=== PATIENT | female | born 1975 | race Caucasian/White ===

== ENCOUNTER 2018-03-15 19:16 | Emergency (ER) | payer SELFPAY ==
--- NOTE | 2018-03-15 19:46 | EDM.PDOC ---
ED HPI GENERAL MEDICAL PROBLEM - General Chief Complaint: Skin Complaint Stated Complaint: SPLINTERS IN BOTH KNEES Time Seen by Provider: 03/15/18 19:40 Source of Information: Reports: Patient - History of Present Illness Onset Date: 03/09/18 Duration: Day(s): Bilateral Knee Pain Score (Numeric/FACES): 10 - Related Data Allergies Allergy/AdvReac Type Severity Reaction Status Date / Time Penicillins Allergy Airway Verified 03/15/18 19:28 Tightness Home Meds: Home Meds . [No Known Home Meds] 03/15/18 [History] Past Medical History - Past Surgical History HEENT Surgical History: Reports: Oral Surgery Female Surgical History: Reports: Other (See Below) Other Female Surgeries/Procedures: tubes tied ED ROS GENERAL - Review of Systems Review Of Systems: See Below ED EXAM, SKIN/RASH Exam: See Below Course - Vital Signs Last Recorded V/S: Last Vital Signs Temp 36.6 C 03/15/18 19:22 Pulse 92 03/15/18 19:22 Resp 18 03/15/18 19:22 BP 117/83 03/15/18 19:22 Pulse Ox 100 03/15/18 19:22 Departure - Departure Time of Disposition: 19:49 Disposition: Home, Self-Care 01 Condition: Good Clinical Impression: Skin pustule - Discharge Information *PRESCRIPTION DRUG MONITORING PROGRAM REVIEWED*: Not Applicable *COPY OF PRESCRIPTION DRUG MONITORING REPORT IN PATIENT CASSIE: Not Applicable Instructions: Cellulitis, Adult, [id number] Referrals: PCP,None [Primary Care Provider] - Additional Instructions: Wash areas involved with bacteriocidal soap (Ie Dial) three times daily with brush, as discussed. Apply ointment after each washing. Take antibiotic (Bactrim) as prescribed. Followup with provider if not improved or resolved within 1 week. Return to ER or clinic if it worsens.
--- NOTE | 2018-03-16 03:40 | ER ---
REASON FOR EMERGENCY ROOM VISIT: Skin infection. HISTORY OF PRESENT ILLNESS: This is a 42-year-old woman comes in with a complaint of possible splinters, bug bites, or skin infection involving primarily her lower thigh and knee areas. 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 Beginning approximately 6 days ago, she noticed a couple of raised bumps on her right hand over the knuckles that festered into vesicles and then became pustular, drained and resolved. She similarly developed raised mildly painful skin lumps that became reddish and developed small vesicles which later turned into pustules that drained spontaneously. She developed approximately 4 of these over each knee over the patellar area bilaterally as well as a couple on her upper inner thighs just above the knees bilaterally. Her concern was that this might represent either some small sorts of wood splinters or perhaps some kind of insect bites. They sort of evolved very slowly over the past week and are persistent and have not shown any signs of resolving except for the ones on her hands have resolved spontaneously. There is no itching with these. She has not had any fever or chills. The redness has very slowly increased over the past 2 or 3 days. She has been treating these by bathing in Epsom salts and placing A and D ointment over them, but she has not taken any antibiotics. She is allergic to penicillin. She has no prior history of anything like this in the past. She was concerned that this might represent tiny splinters from crawling on her knees over this deck that she was working on, but she has not actually found any splinters. This of course would not explain why these lesions also cropped up in her lower inner thighs which were not direct contact with the deck. PAST MEDICAL HISTORY: Reviewed. See EMR. CURRENT MEDICATIONS: Reviewed. See EMR. PHYSICAL EXAMINATION: VITAL SIGNS: See EMR SKIN: She has 1 small remaining raised callused area over her knuckle of her right middle finger. There are no pustules and no erythema here. Over both knees, she has 4 raised reddish papules, some of which have some crusting in the center from excoriation. There is no expressible purulence. There is no crepitus. I cannot see any sign of any foreign body in any of these. There is some erythema ranging from 1 to 2 cm in diameter on each of these areas. She has 2 smaller ones up on her lower inner thighs bilaterally just above the knee. These are only 2 or 3 mm in total diameter. These are not particularly tender. There is no residual pustules now. They all seem to have drained. IMPRESSION: Pustular skin infections with the above history. I am thinking this is a bacterial infection related to trauma to the skin with some cellulitis present. PLAN: She is allergic to penicillin, so we will go ahead and place her on Bactrim DS 1 p.o. b.i.d. x1 week. I also gave her a prescription for mupirocin ointment to apply to these affected areas t.i.d. after washing with bactericidal soap and water. I encouraged her to use soft bristle brush which will help to keep the denuded areas debrided, and if there are small particles of splinters, it will help to get them worked out. If in any way these worsen over the next few days, she should be seen again promptly. Otherwise, I asked her to follow up with her primary care provider if these are not significantly improved or resolved within 1 week's time. Certainly, if she has fever or chills, she should be seen as well. All questions were answered. She understands and agrees with this plan. MATTHEW /[id number]
== END 2018-03-15 19:55 | disposition home or self-care (01) ==
LOC: JD.ED 19:16
DX: L03.116 Cellulitis of left lower limb (principal); L03.115 Cellulitis of right lower limb; L08.9 Local infection of the skin and subcutaneous tissue, unspecified; Z88.0 Allergy status to penicillin
CPT/HCPCS: 99282; 99283

== ENCOUNTER 2024-08-01 16:07 | Emergency (ER) | payer OTHER ==
[2024-08-01] MEDS: Sodium Chloride 0.9% 1,000 ML IV ONE (17:11)
[2024-08-01] MEDS: Sodium Chloride 0.9% 10 ML Syringe FLUSH PRN (17:12)
[2024-08-01] MEDS: Ondansetron 4 MG/2 ML SDV IVPUSH ONE (17:12)
[2024-08-01 17:14] LABS: BASOPHILS PERCENT AUTO 0.3 % (0.0-1.0); EOSINOPHILS ABSOLUTE AUTO 0.1 K/mm3 (0.0-0.4); EOSINOPHILS PERCENT AUTO 2.1 % (0.0-6.0); HEMOGLOBIN 11.7 gm/dl (12.0-16.0); IMMATURE GRAN ABSOLUTE AUTO 0.01 K/mm3 (0.00-0.05); IMMATURE GRAN PERCENT AUTO 0.3 % (0.0-0.4); LYMPHOCYTES ABSOLUTE AUTO 0.5 K/mm3 (1.0-4.8); LYMPHOCYTES PERCENT AUTO 12.8 % (24.0-44.0); MEAN CORPUSCULAR HEMOGLOBIN 30.7 pg (28.0-32.0); MEAN CORPUSCULAR HGB CONC 33.4 g/dl (32.0-36.0); MEAN CORPUSCULAR VOLUME 91.9 fl (83.0-99.0); MEAN PLATELET VOLUME 9.6 fl (9.4-12.3); MONOCYTES ABSOLUTE AUTO 0.3 K/mm3 (0.0-0.8); MONOCYTES PERCENT AUTO 7.9 % (0.0-8.0); NEUTROPHILS ABSOLUTE AUTO 2.9 K/mm3 (1.8-7.7); NEUTROPHILS PERCENT AUTO 76.6 % (41.0-71.0); PLATELET COUNT,PLT 163 K/mm3 (150-400); RED BLOOD CELL COUNT 3.81 M/mm3 (4.10-5.30); WHITE BLOOD CELL COUNT,WBC 3.82 K/mm3 (3.9-11.3)
[2024-08-01 17:38] LABS: ALANINE AMINOTRANSFERASE,ALT 15 U/L (14-59); ALBUMIN 3.2 g/dl (3.4-5.0); ALKALINE PHOSPHATASE 46 U/L (46-116); ANION GAP 14.3 (5-15); ASPARTATE AMNIOTRANSFERASE,AST 11 U/L (15-37); BILIRUBIN TOTAL 0.8 mg/dL (0.2-1.0); BLOOD UREA NITROGEN,BUN 11 mg/dL (7-18); BUN/CREATININE RATIO 13.8 (14-18); CALCIUM 8.1 mg/dL (8.5-10.1); CARBON DIOXIDE,CO2 24 mEq/L (21-32); CHLORIDE,CL 102 mEq/L (98-107); CREATININE 0.8 mg/dL (0.55-1.02); EST CRCL DRUG DOSING (CG) 81.38 mL/min; ESTIMATED GFR 91 mL/min (>60); GLUCOSE RANDOM 93 mg/dL (70-99); MAGNESIUM 1.7 mg/dL (1.8-2.4); POTASSIUM,K 3.3 mEq/L (3.5-5.1); PROTEIN TOTAL,TP 6.3 g/dl (6.4-8.2); SODIUM,NA 137 mEq/L (136-145)
[2024-08-01 17:39] LABS: TROPONIN I HIGH SENSITIVITY < 4 pg/mL (<=51)
[2024-08-01] MEDS: Magnesium Oxide 400 MG Tab PO SCH (20:33)
[2024-08-01] MEDS: Potassium Chloride 20 MEQ Tab.ER PO ONE (20:33)
== END 2024-08-01 21:09 | disposition home or self-care (01) ==
LOC: JD.ED 16:07
DX: K52.9 Noninfective gastroenteritis and colitis, unspecified (principal); Z87.891 Personal history of nicotine dependence; Z88.0 Allergy status to penicillin
CPT/HCPCS: 36415; 71045; 80053; 83735; 84484; 85025; 85379; 93005; 96360; 99284; A9270; J7030; 93010; 99283